=== PATIENT | female | born 1945 ===

== ENCOUNTER 2019-06-24 12:15 | Inpatient (IN) | payer OTHER ==
[2019-06-24] MEDS ORDERED: FORTAMET500 MG (13:12)
[2019-06-24] MEDS ORDERED: IRBESARTAN-HCT1 EAC1 (13:12)
[2019-06-24] MEDS ORDERED: TIROSINT25 MCG (13:13)
[2019-06-24] MEDS ORDERED: GRALISE600 MG (13:13)
[2019-06-24] MEDS ORDERED: SIMVASTATIN PO (13:14)
[2019-07-02] MEDS ORDERED: COLACE100 MG PO (07:31)
[2019-07-02] MEDS ORDERED: CLONAZEPAM0.5 MG PO (07:31)
[2019-07-02] MEDS ORDERED: ZOFRAN8 MG PO (07:32)
[2019-07-02] MEDS ORDERED: ACETAMINOPHEN-1 EAC2 PO (07:32)
== END 2019-07-03 13:20 | disposition home or self-care (01) | DRG 473 ==
LOC: O/R 07-02 05:47 → SURH 07-02 10:15
PROVIDERS: ADMIT Orthopaedic Surgery Orthopaedic Surgery of the Spine
PROC: 0RT30ZZ Resection of Cervical Vertebral Disc, Open Approach (ICD-10-PCS; 2019-07-02)
PROC: 07DS3ZZ Extraction of Vertebral Bone Marrow, Percutaneous Approach (ICD-10-PCS; 2019-07-02)
PROC: 0RG20A0 Fusion of 2 or more Cervical Vertebral Joints with Interbody Fusion Device, Anterior Approach, Anterior Column, Open Approach (ICD-10-PCS; principal; 2019-07-02 10:15)
DX: M50.01 Cervical disc disorder with myelopathy, high cervical region (principal); I10 Essential (primary) hypertension; E11.9 Type 2 diabetes mellitus without complications; E03.8 Other specified hypothyroidism; Z79.4 Long term (current) use of insulin